=== PATIENT | female | born 1955 | race Caucasian/White ===

== ENCOUNTER → 2020-08-11 | Outpatient (CLI) | payer OTHER ==
--- NOTE | 2020-08-11 14:18 | RAD ---
EXAM: Abdomen sonogram. HISTORY: Elevated liver function laboratory values. TECHNIQUE: Sonographic imaging of the abdomen was performed. COMPARISON: 09/17/2013. FINDINGS: The liver is upper normal in size. No focal hepatic lesion is seen. The common bile duct is normal in caliber. There is cholelithiasis. There is no cholecystitis. The kidneys are normal in size. There is no hydronephrosis. There are small simple appearing bilateral renal cysts, the largest of which is seen on the left measuring 1.7 cm. The spleen is normal in size. The pancreas, aorta and inferior vena cava are partially obscured due to bowel gas. IMPRESSION: 1. Small simple renal cysts. Follow-up is not routinely recommended for simple renal cysts. 2. Partially obscured midline structures due to bowel gas. 3. Cholelithiasis. Electronically signed by: Padmini Levin MD (08/11/2020 2:15 PM) [id number]
== END ==
LOC: US 10:19
PROVIDERS: ATTEND Family Medicine
DX: K80.20 Calculus of gallbladder without cholecystitis without obstruction (principal); R79.89 Other specified abnormal findings of blood chemistry; N28.1 Cyst of kidney, acquired
CPT/HCPCS: 76700